=== PATIENT | female | born 2000 | race Caucasian/White ===

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

== ENCOUNTER 2022-07-09 14:25 | Inpatient (IN) | payer OTHER, MEDICAID, SELFPAY ==
[2022-07-09] VITALS (16 sets, daily range): BP systolic 111–139; BP diastolic 68–93; PULSE 72–93; TEMP 36.4–36.8; O2SAT 95–100; BMI 42.3
--- NOTE | 2022-07-09 14:30 | PCM.HP.OB ---
HPI - General HPI Narrative SAMY AHGEN, is a 22 F at 40.1 weeks gestation who presents for decreased movement. She went to Urgent Care in [place] and they got FHT via doppler. She was sent here for extended monitoring. She stated she hasn't felt much movement since yesterday. Having irregular contractions. Denies any loss of fluid or vaginal bleeding. complicated by Obesity. BMI >40. GBS negative. Maternal Data Information ROSAMARIA Calculator Estimated Delivery Date Method Current WG Current Estimate 07/08/22 Manual 40w 1d PFSH PFSH Home Medications aspirin 81 mg chewable tablet 162 mg PO DAILY 07/09/22 [History Last Taken 07/08/22 10:00] famotidine 10 mg tablet 10 mg PO DAILY 07/09/22 [History Last Taken 07/08/22 10:00] vits,calcium no.78-iron fumarate-folic acid 29 mg-1 mg tablet (Prenatabs FA) 1 tab PO DAILY 07/09/22 [History Last Taken 07/08/22 10:00] Allergy/AdvReac Type Severity Reaction Status Date / Time Penicillins Allergy Rash Verified 12/02/12 16:12 Social History Smoking Status: Never smoker ROS Eyes Eyes: Denies blurry vision, change in vision or spots in vision ENT HEENT: Denies dizziness or headache(s) Cardiovascular Cardiovascular: Denies abdominal pain, chest pain or dyspnea Respiratory/Chest Respiratory/Chest: Denies cough, dyspnea, shortness of breath at rest or shortness of breath with exertion Gastrointestinal Gastrointestinal: Denies abdominal pain, diarrhea or vomiting Genitourinary Genitourinary: Denies change in urinary stream, difficulty urinating or dysuria Musculoskeletal Musculoskeletal: Reports none Integumentary Integumentary: Denies rash Neurologic Neurologic: Denies dizziness, headache(s), memory loss or weakness Psychiatric Psychiatric: Reports none Vital Signs Vital Signs Vital Signs: 07/09/22 13:38 07/09/22 13:39 07/09/22 13:39 Temperature 98.1 F Temperature Source Pulse Rate 84 Blood Pressure BP Systolic BP Diastolic Pulse Ox 99 07/09/22 13:42 07/09/22 13:42 07/09/22 13:41 Temperature Temperature Source Temporal Pulse Rate 87 Blood Pressure 119/73 BP Systolic 119 BP Diastolic 73 Pulse Ox 07/09/22 13:41 07/09/22 13:41 07/09/22 13:41 Temperature Temperature Source Pulse Rate 88 Blood Pressure 119/73 BP Systolic 119 BP Diastolic 73 Pulse Ox 99 07/09/22 13:41 Temperature 98.1 F Temperature Source Pulse Rate Blood Pressure BP Systolic BP Diastolic Pulse Ox Weight Weight: 231 lb 7.766 oz Body Mass Index (BMI) 42.3 Physical Exam Const alert and no apparent distress General Appearance: cooperative Orientation / Consciousness: awake Exam Limitations: no limitations HEENT normocephalic Eyes General Eye: normal appearance of both eyes Neck full ROM Chest inspection of chest normal Resp normal respiratory effort and normal air movement Effort and Inspection: symmetric chest movement Auscultation: clear to auscultation bilaterally Cardio regular rate GI soft to palpation, non-tender and non-distended Inspection: and other Back/Spine normal ROM Extremity full ROM, normal capillary refill and no calf tenderness Skin no rashes or lesions noted Neuro oriented x3 and CN's II-XII intact bilaterally Psych mental status grossly normal Labs Labs Labs: No Data to Display GBS negative Assessment & Plan (1) 40 weeks gestation of : (2) Obesity affecting : (3) Decreased movement: PLAN: Plan Admit to L&D CE /-3 Cytotec 25mcg PO every 4 hours x [address] marie bulb after admission GBS negative Dr. Gibson notified of admission and is collaborating physician
[2022-07-09] MEDS: miSOPROStol 25 MCG TABLET PO ×2 (15:27→19:28)
[2022-07-09] MEDS: Lactated Ringers 1,000 ML 50 ML IV (15:27)
[2022-07-09 15:51] LABS: Absolute Lymphocyte Count 2.65 X10^3/uL (0.83-4.51); Absolute Neutrophil Count 7.2 X10^3/uL (2.0-7.7); Basophil# 0.08 X10^3/uL; Basophil% 0.7 % (0-1); Eosinophil# 0.15 X10^3/uL; Eosinophils% 1.4 % (0-5); Hematocrit 38.3 % (37-47); Hemoglobin 12.5 g/dL (12.0-15.0); Lymphocyte # 2.65 X10^3/ul (0.83-4.51); Mean Corp Hgb Conc 32.6 g/dL (32-36); Mean Corpuscular Hgb 27.5 pg (27.0-32.0); Mean Corpuscular Volume 84.4 fL (81-99); Mean Platelet Vol. 9.1 fl (6.2-12.0); Monocyte# 0.92 X10^3/uL; Monocyte% 8.3 % (0-10); NRBC Flagged by Analyzer 0 % (0-5); Neutrophil # 7.15 X10^3/uL (2.7-7.7); Neutrophil % 64.9 % (47-70); Platelet Count 319 K/mm3 (150-450); RBC Distribution Width CV 12.8 % (11.6-14.6); RBC Distribution Width SD 39.2 fl (35.1-43.9); Red Blood Count 4.54 M/mm3 (4.2-5.4)
[2022-07-09 16:09] LABS: Syphilis Antibodies Non-reactive
[2022-07-09] MEDS: 0.9% Normal Saline Single 100 ML IV.SOLN. INTRA-UTER (18:16)
--- NOTE | 2022-07-09 18:43 | PCM.PN.BLA ---
Progress Note At bedside with pt and RN. Pt is doing well and offers no complaints. Assessment & Plan Assessment/Plan (1) 40 weeks gestation of : PLAN: Intracervical marie placed in usual fashion and filled with 30 cc saline. Will give 1 more dose of cytotec. Once marie out and 4 hours out from last dose of cytotec, will start pitocin per protocol. (2) Obesity affecting : (3) Decreased movement:
[2022-07-10] VITALS (45 sets, daily range): BP systolic 102–155; BP diastolic 6–87; PULSE 70–134; RESP 14–18; TEMP 36.1–37.6; O2SAT 95–100
[2022-07-10] MEDS: Oxytocin 15 Units/NS 250ml 15 UNITS/250 ML IV.SOLN 2 UNITS IV
[2022-07-10] MEDS: Ondansetron 4 MG/2 ML Vial IV (04:25)
[2022-07-10 04:47] LABS: ROM Internal Control Test YES-OK TO RESULT pt. (Internal QC); ROM Patient Test POSITIVE (Negative); Record Kit Lot#, ROM+ K1374
[2022-07-10] MEDS: fentaNYL 100 MCG/2 ML Ampul IV (06:34)
[2022-07-10] MEDS: 0.9% Saline Lock 10 ML Syringe IV (06:34)
[2022-07-10] MEDS: LACTATED RINGERS 500 ML 999 ML IV ×2 (06:49→10:17)
[2022-07-10] MEDS: Lactated Ringers 1,000 ML 50 ML IV (07:49)
[2022-07-10] MEDS: fentaNYL-bupivacaine (epidural) 100 ML BAG EPIDURAL (07:50)
--- NOTE | 2022-07-10 09:44 | PN.OBGYN_ITS ---
Subjective Subjective At bedside to check on pt with RN. Objective Data Objective Data Vital Signs: Vital Signs Temp Pulse BP Pulse Ox 97.9 F 77 123/64 H 99 07/10/22 09:43 07/10/22 08:41 07/10/22 08:41 07/10/22 08:04 Weight: 231 lb 7.766 oz Body Mass Index (BMI) 42.3 Intake & Output: Intake and Output for Last 24 Hours 07/08/22 07/09/22 07/10/22 23:59 23:59 23:59 Intake Total 1371.69 / 1371.69 Balance 1371.69 / 1371.69 Lab / Micro Data Result Diagrams: 07/09/22 15:10 Labs: Laboratory Results - last 24 hr 07/09/22 15:10: WBC 11.0, RBC 4.54, Hgb 12.5, Hct 38.3, MCV 84.4, MCH 27.5, MCHC 32.6, RDW Std Deviation 39.2, RDW Coeff of Daron 12.8, Plt Count 319, MPV 9.1, Immature Gran % (Auto) 0.700, Neut % (Auto) 64.9, Lymph % (Auto) 24.0, [place] % (Auto) 8.3, Eos % (Auto) 1.4, Baso % (Auto) 0.7, Absolute Neuts (auto) 7.2, Absolute Lymphs (auto) 2.65, Nucleated RBC % 0 07/09/22 15:10: Blood Type A POSITIVE, Antibody Screen NEGATIVE 07/09/22 15:10: Syphilis Total Ab Non-reactive 07/10/22 04:35: Vag Amniotic Fld Detect POSITIVE H Assessment & Plan (1) 40 weeks gestation of : PLAN: Cvx /0 and internal monitors placed. FHT 150/mod daron/+accels/+variable decels. Ctx q 2-4 min. Discussed with pt variable decels and RN to cont resuscitative measures. Will start amnioinfusion. Discussed with pt if persistent category 2 tracing despite resuscitative measures given remote from delivery may need section. Questions answered. (2) Obesity affecting :
[2022-07-10] MEDS: Amnioinfusion- 0.9% NS 1,000 ML IV.SOLN. 1000 ML INTRA-UTER (09:57)
[2022-07-10] MEDS: Sodium Citrate/Citric Acid 30 ML UDC PO (10:45)
[2022-07-10] MEDS: Cefazolin 2 GM in 0.9% Normal Saline 100 ML IV (11:09)
--- NOTE | 2022-07-10 12:23 | OP.PCM_ITS ---
Problems Associated Problem List Diagnoses (1) Delivery by section: (2) Non-reassuring heart rate or rhythm affecting management of fetus: (3) Obesity affecting : (4) 40 weeks gestation of : (5) intolerance to labor, delivered, current hospitalization: Report of Operation Date of Procedure: 07/10/22 Pre-Operative Diagnosis: 40 weeks gestation, single IUP, obesity, intolerance to labor Post-Operative Diagnosis: As above Surgery/Procedure Performed:: PLTCS via pfannenstiel incision Description of Surgical Findings:: Vigorous VFI with a loose nuchal cord around the shoulders. Normal appearing placenta with 3 VC. Normal appearing uterus with bilateral adnexa. Apgars 8, 9 Surgeon: Kayy Gibson hand outside cutter: Jordyn GALAN Type of Anesthesia: Epidural Special Medications: None Specimen's removed: Placenta Drains: Marie Estimated Blood Loss (mL): 800 Fluids Replaced: 1000 mL Description of Procedure: Indications: Patient is a 22-year-old primipara presented at 40 weeks gestation for IOL given obesity. Her induction was started with an intracervical marie and cytotec. Pitocin was then started. She spontaneously ruptured. She progressed to 4 cm dilated. She then had a persistent category 2 tracing despite recussitative measures, and was remote from delivery. Recommended a section for nonreassuring heart tracing, and patient desired to proceed. Consent obtained. Procedure: Patient was taken to the operating room where epidural anesthesia was found to be adequate. She was prepped and draped in the dorsal position with a leftward tilt. A Pfannenstiel skin incision was made with a scalpel and this was carried down to the underlying layer of fascia. The fascia was incised in midline. The fascia was extended laterally using Post scissors. The fascia was dissected off the rectus muscles both cephalad and caudad. The rectus muscles were midline. The peritoneum was entered bluntly with good visualization of the bladder. The peritoneal incision was extended bluntly. A bladder blade was inserted. A low transverse incision was made on the uterus with a scalpel. The uterine incision was extended bluntly. The head was flexed and elevated out of the pelvis and delivered through the hysterotomy. The shoulders and body of the infant were delivered. A vigorous viable female infant was delivered without any force or delay. The cord was clamped and cut and the infant was handed off to the awaiting nursery staff. The placenta was removed with manual extraction. The uterus was cleared of all clot debris. The uterus was exteriorized. The uterus was closed with 1-0 Vicryl in a running locked fashion. Several additional [id number] sutures were placed for hemostasis. The uterus was placed back into the abdomen. Abelino was placed over the lower uterine segment and hysterotomy. Hemostasis was noted. The fascia was closed with strata fix in a running fashion. The subcutaneous space was irrigated and made hemostatic with the Bovie cautery. Subcutaneous space was reapproximated 3-0 Vicryl. The skin was closed with 4 Monocryl in a subcuticular fashion. A dressing was placed. Instrument, sponge, needle counts were correct. The patient was taken to recovery room in stable condition. Grafts/Implants Used: None Complications None Admit VTE Documentation VTE Present on Admission: No VTE Mechan Device Prophylaxis: SCD's
[2022-07-10] MEDS: Oxytocin 15 Units/NS 250ml 15 UNITS/250 ML IV.SOLN 83 UNITS IV (12:54)
[2022-07-10] MEDS: Acetaminophen 500 MG Tablet 1000 MG PO ×2 (13:05→18:47)
[2022-07-10] MEDS: Ketorolac 30 MG/ML Syringe IV ×2 (13:05→18:47)
[2022-07-10] MEDS: Lactated Ringers 1,000 ML 100 ML IV (15:33)
[2022-07-11] VITALS (9 sets, daily range): BP systolic 102–130; BP diastolic 45–73; PULSE 68–100; RESP 16–20; TEMP 36.4–36.8; O2SAT 97–100
[2022-07-11] MEDS: Enoxaparin 40 MG/0.4 ML Syringe SC ×2 (00:17→13:23)
[2022-07-11] MEDS: Acetaminophen 500 MG Tablet 1000 MG PO ×4 (01:46→20:53)
[2022-07-11] MEDS: Ketorolac 30 MG/ML Syringe IV ×2 (01:46→08:14)
[2022-07-11] MEDS: 0.9% Saline Lock 10 ML Syringe IV ×2 (01:47→08:15)
[2022-07-11 05:34] LABS: Hematocrit 28.2 % (37-47); Hemoglobin 9.3 g/dL (12.0-15.0); Mean Corpuscular Hgb 27.9 pg (27.0-32.0); Mean Corpuscular Volume 84.7 fL (81-99); Platelet Count 279 K/mm3 (150-450); RBC Distribution Width CV 12.8 % (11.6-14.6); RBC Distribution Width SD 38.5 fl (35.1-43.9); Red Blood Count 3.33 M/mm3 (4.2-5.4); White Blood Count 17.8 K/mm3 (4.4-11.0)
[2022-07-11] MEDS: Senna/Docusate Sodium 1 Tablet PO (08:15)
--- NOTE | 2022-07-11 11:08 | PCM.PN.OB ---
Subjective Subjective Patient seen at bedside. Feeling well. Pain is controlled with Motrin and Tylenol PO. Patient ambulating and voiding without difficulty. Passing flatus. Denies any CP, SOB or dizziness. Objective Data Objective Data Vital Signs: Vital Signs Temp Pulse Resp BP Pulse Ox O2 Del Method 97.8 F 87 16 118/73 98 Room Air 07/11/22 10:56 07/11/22 10:56 07/11/22 10:56 07/11/22 10:56 07/11/22 10:56 07/11/22 10:56 Oxygen Delivery Method Room Air Weight: 231 lb 7.766 oz Body Mass Index (BMI) 42.3 Intake & Output: Intake and Output for Last 24 Hours 07/09/22 07/10/22 07/11/22 23:59 23:59 23:59 Intake Total 4030.86 / 4030.86 988.33 / 988.33 Output Total 2250 / 2250 400 / 400 Balance 1780.86 / 1780.86 588.33 / 588.33 Lab / Micro Data Result Diagrams: 07/11/22 05:30 Labs: Laboratory Results - last 24 hr 07/11/22 05:30: WBC 17.8 H, RBC 3.33 L, Hgb 9.3 L, Hct 28.2 L, MCV 84.7, MCH 27.9, MCHC 33.0, RDW Std Deviation 38.5, RDW Coeff of Daron 12.8, Plt Count 279, MPV 9.0 ROS Eyes Eyes: Denies blurry vision, change in vision or spots in vision ENT HEENT: Denies dizziness or headache(s) Cardiovascular Cardiovascular: Denies abdominal pain, chest pain or dyspnea Respiratory/Chest Respiratory/Chest: Denies cough, dyspnea, shortness of breath at rest or shortness of breath with exertion Gastrointestinal Gastrointestinal: Denies abdominal pain, diarrhea or vomiting Genitourinary Genitourinary: Denies change in urinary stream, difficulty urinating or dysuria Musculoskeletal Musculoskeletal: Reports none Integumentary Integumentary: Denies rash Neurologic Neurologic: Denies dizziness, headache(s), memory loss or weakness Physical Exam Narrative Dressing is dry and intact Const alert and no apparent distress General Appearance: cooperative and comfortable Exam Limitations: no limitations HEENT normocephalic Eyes General Eye: normal appearance of both eyes Neck full ROM General: normal visual inspection Chest Chest: symmetrical chest wall rise Resp normal respiratory effort and normal air movement Effort and Inspection: symmetric chest movement Auscultation: clear to auscultation bilaterally Cardio regular rate and regular rhythm GI normal to inspection, nondistended, normoactive bowel sounds Back/Spine normal ROM Extremity full ROM and no calf tenderness General Extremity: normal exam except as noted Skin no rashes or lesions noted Neuro CN's II-XII intact bilaterally Psych mental status grossly normal Assessment & Plan (1) Delivery by section: (2) Care and examination of lactating mother: PLAN: Plan POD 1 Primary C/S Pain control support Increase ambulation today Anticipate discharge home tomorrow
[2022-07-11] MEDS: Ibuprofen 600 MG Tablet PO ×2 (14:03→20:53)
[2022-07-11] MEDS: Ferrous Sulfate 325 MG Tablet PO ×2 (14:03→18:44)
[2022-07-12] MEDS: Enoxaparin 40 MG/0.4 ML Syringe SC ×2 (00:15→12:19)
[2022-07-12] MEDS: Ibuprofen 600 MG Tablet PO ×2 (02:28→09:24)
[2022-07-12] MEDS: Acetaminophen 500 MG Tablet 1000 MG PO ×2 (02:29→09:24)
[2022-07-12 02:34] VITALS: BP 127/62; PULSE 85; RESP 18; TEMP 36.6
--- NOTE | 2022-07-12 08:21 | PCM.PN.OB ---
Objective Data Objective Data Doing well per patient and nursing staff. Ambulating and taking PO without difficulty. Voiding and passing flatus. Pain controlled. , services for assistance. Denies headache, visual changes, chest pain, shortness of breath, leg pain or increased bleeding. Lochia normal. Vital Signs: Vital Signs Temp Pulse Resp BP Pulse Ox O2 Del Method 97.8 F 85 18 127/62 H 99 Room Air 07/12/22 02:34 07/12/22 02:34 07/12/22 02:34 07/12/22 02:34 07/11/22 17:16 07/12/22 02:34 Oxygen Delivery Method Room Air Weight: 231 lb 7.766 oz Body Mass Index (BMI) 42.3 Intake & Output: Intake and Output for Last 24 Hours 07/10/22 07/11/22 07/12/22 23:59 23:59 23:59 Intake Total 4030.86 / 4030.86 988.33 / 988.33 Output Total 2250 / 2250 1020 / 1020 Balance 1780.86 / 1780.86 -31.67 / -31.67 Lab / Micro Data Result Diagrams: 07/11/22 05:30 ROS Constitutional Constitutional: Reports systems reviewed and no addt'l complaints, except as documented; Denies headache(s) Eyes Eyes: Denies acute decrease in peripheral vision, blurry vision or change in vision ENT HEENT: Reports systems reviewed and no addt'l complaints, except as documented Cardiovascular Cardiovascular: Denies chest pain or dizziness Respiratory/Chest Respiratory/Chest: Denies cough, dyspnea, dyspnea on exertion, shortness of breath at rest or shortness of breath with exertion Gastrointestinal Gastrointestinal: Denies abdominal pain, diarrhea, nausea or vomiting Genitourinary Genitourinary: Denies abdominal discomfort Musculoskeletal Musculoskeletal: Denies limited range of motion Integumentary Integumentary: Reports systems reviewed and no addt'l complaints, except as documented Neurologic Neurologic: Reports systems reviewed and no addt'l complaints, except as documented Psychiatric Psychiatric: Reports systems reviewed and no addt'l complaints, except as documented Endocrine Endocrinology: Reports systems reviewed and no addt'l complaints, except as documented Hematologic/Lymphatic Hematologic/Lymphatic: Reports systems reviewed and no addt'l complaints, except as documented Allergic/Immunologic Allergic/Immunologic: Reports systems reviewed and no addt'l complaints, except as documented Physical Exam Const alert and oriented x3 General Appearance: cooperative Orientation / Consciousness: awake, oriented to person, oriented to place and oriented to time Exam Limitations: no limitations HEENT normocephalic Head and Scalp: normal to inspection, normocephalic and atraumatic Face and Sinus: normal facial exam Eyes General Eye: normal appearance of both eyes Neck full ROM Chest Chest: symmetrical chest wall rise Resp normal respiratory effort and normal air movement Auscultation: clear to auscultation bilaterally Cardio regular rate, regular rhythm, S1 normal heart sound, S2 normal heart sound, no murmurs, no rub, no gallops and no clicks GI normal to inspection, nondistended, normoactive bowel sounds and non-tender GI Narrative: Dressing dry and intact appearance of the vagina normal Bladder / Kidney Exam: no CVA tenderness Back/Spine normal ROM Extremity normal to inspection and full ROM Skin no rashes or lesions noted Neuro oriented x3, CN's II-XII intact bilaterally and moves all extremities Sensorium / Orientation: awake, alert and oriented to person Motor Exam: clonus absent Deep Tendon Reflexes: Rt Patellar (L4): 2+ and Lt Patellar (L4): 2+ Assessment & Plan (1) Care and examination of lactating mother: (2) intolerance to labor, delivered, current hospitalization: (3) Non-reassuring heart rate or rhythm affecting management of fetus: (4) Delivery by section: PLAN: Plan 1) POD #2 primary LTCS 2) Vitals stable 3) I&Os 4) Pain management 5) D/C home today 6) Follow up in 1 weeks for incision check and 6 week for PP visit
--- NOTE | 2022-07-12 08:26 | PCM.DC.SUM ---
Providers Date of Admission: 07/09/22 Primary Care Physician: FRANKLIN Garcia Reason For Visit: PRIMARY C SECTION Diagnosis Discharge Diagnosis (1) Care and examination of lactating mother: Status: Acute Code(s): Z39.1 - Encounter for care and examination of lactating mother (2) intolerance to labor, delivered, current hospitalization: Status: Acute Code(s): O77.9 - Labor and delivery complicated by stress, unspecified (3) Non-reassuring heart rate or rhythm affecting management of fetus: Status: Acute (4) Delivery by section: Status: Acute Plan 1) POD #2 primary LTCS 2) Vitals stable 3) I&Os 4) Pain management 5) D/C home today 6) Follow up in 1 weeks for incision check and 6 week for PP visit Medications at Discharge Home Medications vits,calcium no.78-iron fumarate-folic acid 29 mg-1 mg tablet (Prenatabs FA) 1 tab PO DAILY 07/09/22 ibuprofen 600 mg tablet 600 mg PO Q6H #0 tabs 07/12/22 oxycodone 5 mg tablet 5 mg PO Q6H 7 days #10 tabs 07/12/22 sennosides 8.6 mg-docusate sodium 50 mg tablet (Stool Softener-Stimulant Laxative) 1 - 2 tab PO DAILY #30 tabs 07/12/22 Weight / BMI Weight Weight: 231 lb 7.766 oz Body Mass Index (BMI) 42.3 ABG / Lab / Microbiology Data Result Diagrams: 07/11/22 05:30 Meaningful Use Info Meaningful Use Diagnoses (Choose all that apply): None applicable Discharge Plan Admission Admit Date/Time: 07/09/22 14:25 Primary Reason for Your Visit: section Attending Provider: Kayy Gibson Primary Care Provider: Nisa Rodriguez NP Discharge Orders/Prescriptions Prescriptions: New ibuprofen 600 mg Tablet 600 mg PO Q6H Qty: 0 0RF oxycodone 5 mg Tablet 5 mg PO Q6H 7 Days Qty: 10 0RF sennosides-docusate sodium [Stool Softener-Stimulant Laxat] 8.6-50 mg Tablet 1 - 2 tab PO DAILY Qty: 30 0RF Continued Prenatabs FA 29-1 mg Tablet 1 tab PO DAILY Discontinued famotidine 10 mg Tablet 10 mg PO DAILY aspirin [Baby Aspirin] 81 mg Tablet,Chewable 162 mg PO DAILY Referrals / Follow Up: Kayy Gibson DO [Med Staff - Active Staff] - (Follow up in 1 week for incision check and 6 week for PP visit) Nisa Rodriguez INTERLINE CLERK, INTERLINE CLERK-C [Primary Care Provider] - Disposition Disposition (needs filled in before D/C Order can be placed): Home, Self Care
[2022-07-12 09:00] VITALS: BP 119/66; PULSE 80; RESP 16; TEMP 36.4
[2022-07-12] MEDS: Senna/Docusate Sodium 1 Tablet PO (09:24)
[2022-07-12] MEDS: Ferrous Sulfate 325 MG Tablet PO (12:59)
== END 2022-07-12 13:32 | disposition home or self-care (01) | DRG 788 ==
LOC: WPOUT 14:31 → WP 14:34
PROVIDERS: Advanced Practice Midwife; Admitting Provider Obstetrics & Gynecology; PCP Registered Nurse; Visit Provider Obstetrics & Gynecology
DX: O76 Abnormality in fetal heart rate and rhythm complicating labor and delivery (principal); E66.8 Other obesity; O99.214 Obesity complicating childbirth; O69.81X0 Labor and delivery complicated by cord around neck, without compression, not applicable or unspecified; Z37.0 Single live birth; Z3A.40 40 weeks gestation of pregnancy; Z79.82 Long term (current) use of aspirin
CPT/HCPCS: 59025; 59050; 84112; 85025; 85027; 86780; 86850; 86900; 86901; 99221; J7030; J7120; A4216; G0378; J2405